=== PATIENT | female | born 1970 | race Caucasian/White ===

== ENCOUNTER 2021-07-02 09:12 | Emergency (ER) | payer OTHER, SELFPAY ==
[2021-07-02 09:13] VITALS: BP 130/89; PULSE 79; RESP 15; TEMP 36.8; O2SAT 100; BMI 24.3
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
[2021-07-02] MEDS: morphine 4 mg/mL SDV 1 mL IVP (10:15)
[2021-07-02 10:21] VITALS: BP 125/78; PULSE 78; O2SAT 99
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
[2021-07-02 11:02] VITALS: BP 121/78; PULSE 83; O2SAT 99
== END 2021-07-02 11:04 | disposition home or self-care (01) ==
PROVIDERS: Emergency Provider Physician Assistant
DX: S06.0X9A Concussion with loss of consciousness of unspecified duration, initial encounter (principal); S00.81XA Abrasion of other part of head, initial encounter; S03.2XXA Dislocation of tooth, initial encounter; V29.40XA Motorcycle driver injured in collision with unspecified motor vehicles in traffic accident, initial encounter
CPT/HCPCS: 70450; 70486; 72125; 96374; 99283; J2270

== ENCOUNTER 2024-05-08 08:36 | Outpatient (CLI) | payer OTHER, SELFPAY ==
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
== END 2024-05-08 08:37 | disposition home or self-care (01) ==
LOC: RAD 08:40
PROVIDERS: Absent Provider Orthopaedic Surgery; PCP Physician Assistant; Visit Provider Physician Assistant
DX: M22.41 Chondromalacia patellae, right knee (principal)
CPT/HCPCS: 73721

== ENCOUNTER 2024-07-02 09:16 | Outpatient (CLI) | payer OTHER, SELFPAY ==
--- NOTE | 2024-07-02 09:00 | MM_ITS ---
WS: [id number] BILATERAL 3D TOMOSYNTHESIS DIGITAL SCREENING MAMMOGRAPHY WITH CAD CLINICAL INFORMATION: SCREENING HISTORY: Screening mammogram. No current complaints. COMPARISON: 2019 TECHNIQUE: Bilateral CC and MLO views. FINDINGS: The breasts are composed of heterogeneous fibroglandular density tissue, which can limit the detectio n of small underlying mass lesions. No suspicious mass, asymmetry, calcifications, or architectural d istortion. No evidence of malignancy. Lucent centered calcifications LEFT breast. Incidental punctate calcification RIGHT breast. MM/MM [facility] tomosynthesis [id number] IMPRESSION: DENSITY: The breasts are heterogeneously dense, which may obscure small masses. BI-RADS: 2 - Benign FOLLOW UP: 1 Year Follow-up Recommend return to annual screening mammography.
== END 2024-07-02 09:17 | disposition home or self-care (01) ==
LOC: MOBLMAM 09:22
PROVIDERS: PCP Physician Assistant; Visit Provider Physician Assistant
DX: Z12.31 Encounter for screening mammogram for malignant neoplasm of breast (principal); R92.333 Mammographic heterogeneous density, bilateral breasts; R92.1 Mammographic calcification found on diagnostic imaging of breast
CPT/HCPCS: 77063; 77067